=== PATIENT | male | born 1995 | race African-American/Black ===

== ENCOUNTER 2021-04-18 12:51 | Emergency (ER) | payer MEDICAID, OTHER ==
[~2021-04-18] VITALS: Ht 182.9 cm; Wt 98.0 kg
[2021-04-18] MEDS ORDERED: PANTOPRAZOLE 40MG DR TABLET PO ONE (13:15)
[2021-04-18] MEDS ORDERED: ONDANSETRON 4MG ODT PO ONE (13:15)
[2021-04-18 16:28] LABS: BASOPHILS % 0.6 % (0.0-2.0); HEMATOCRIT. 42.4 % (42.0-52.0); HEMOGLOBIN. 13.6 g/dL (14.0-18.0); LYMPHOCYTES % 13.7 % (20.0-50.0); MEAN CORPUSCULAR HEMOGLOBIN 25.6 pg (28.0-32.0); MEAN PLATELET VOLUME 7.3 fl (7.4-10.4); MONOCYTES % 13.2 % (2.0-8.0); NEUTROPHILS % 72.5 % (40.0-76.0); PLATELET 252 x1000/uL (130-400)
[2021-04-18 16:34] LABS: CHLORIDE 107 mEq/L (98-107)
[2021-04-18 18:47] VITALS: BP 119/78
[2021-04-18 18:57] LABS: HEMATOCRIT 41.5 % (42.0-52.0); HEMOGLOBIN 13.4 g/dL (14.0-18.0)
[2021-04-18] MEDS ORDERED: OMEP20TA2 MT (19:09)
[2021-04-18] MEDS ORDERED: FAMO40TA7 MT (19:10)
[2021-04-18] MEDS ORDERED: ACET-2708 MT (19:10)
== END 2021-04-18 19:18 | disposition home or self-care (01) ==
LOC: ER 12:51
DX: K92.0 Hematemesis (principal); R10.13 Epigastric pain; Z20.822 Contact with and (suspected) exposure to COVID-19
CPT/HCPCS: 36415; 71045; 80053; 83690; 85014; 85018; 85025; 86850; 86900; 86901; 93005; 99285; C9803; Q0162; U0003; U0005